=== PATIENT | male | born 1990 ===

== ENCOUNTER 2018-12-18 11:12 | Emergency (ER) | payer OTHER ==
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
== END 2018-12-18 13:10 | disposition home or self-care (01) ==
LOC: UCEAST 11:12
DX: M79.652 Pain in left thigh (principal); T14.8XXA Other injury of unspecified body region, initial encounter; V18.0XXA Pedal cycle driver injured in noncollision transport accident in nontraffic accident, initial encounter; Y93.55 Activity, bike riding; Y92.410 Unspecified street and highway as the place of occurrence of the external cause; Y99.8 Other external cause status
CPT/HCPCS: 99202; G0463